=== PATIENT | male | born 1965 | race Caucasian/White ===

== ENCOUNTER 2016-11-19 10:52 | Inpatient (IN) | payer OTHER ==
[2016-11-19 11:30] VITALS: BMI 34.2
--- NOTE | 2016-11-19 13:41 | HP ---
CIWA Score - CIWA Score Nausea/Vomitin-No Nausea/No Vomiting Muscle Tremors: 4-Moderate,w/Arms Extend Anxiety: 4-Mod. Anxious/Guarded Agitation: 4-Moderately Restless Paroxysmal Sweats: 3 Orientation: 0-Oriented Tacttile Disturbances: 0-None Auditory Disturbances: 0-None Visual Disturbances: 0-None Headache: 0-None Present CIWA-Ar Total Score: 15 Admission ROS BHS - HPI Chief Complaint: I am here to detox. Allergies/Adverse Reactions: Allergies Allergy/AdvReac Type Severity Reaction Status Date / Time banana Allergy Severe Hives Verified 11/19/16 13:06 [id number] Allergy Uncoded 11/19/16 13:07 History of Present Illness: pt is a 51yr old male with a history of alcohol and xanax dependence seeking detox for treatment. Exam Limitations: No Limitations - Ebola screening Have you traveled outside of the country in the last 21 days: No Have you had contact with anyone from an Ebola affected area: No Have you been sick,other than usual withdrawal symptoms: No Do you have a fever: No - Review of Systems EENT: reports: No Symptoms Reported Respiratory: reports: No Symptoms reported Cardiac: reports: No Symptoms Reported GI: reports: Diarrhea, Poor Fluid Intake : reports: No Symptoms Reported Musculoskeletal: reports: Other (mild swelling to lower extremities) Integumentary: reports: Flushing, Sweating Neuro: reports: Tingling, Tremors Endocrine: reports: Excessive Sweating, Flushing, Intolerance to Cold, Intolerance to Heat Hematology: reports: No Symptoms Reported Psychiatric: reports: Judgement Intact, Orientated x3, Agitated, Anxious Other Systems: Reviewed and Negative Patient History - Patient Medical History Hx Anemia: No Hx Asthma: No Hx Chronic Obstructive Pulmonary Disease (COPD): No Hx Cancer: No Hx Cardiac Disorders: No Hx Congestive Heart Failure: No Hx Hypertension: No Hx Hypercholesterolemia: No Hx Pacemaker: No HX Cerebrovascular Accident: No Hx Seizures: No Hx Dementia: No Hx Diabetes: No Hx Gastrointestinal Disorders: No Hx Liver Disease: No Hx Genitourinary Disorders: No Hx Sexually Transmitted Disorders: No Hx Renal Disease (ESRD): No Hx Thyroid Disease: No Hx Human Immunodeficiency Virus (HIV): No (negative) Hx Hepatitis C: No (negative) Hx Depression: Yes Hx Suicide Attempt: No (denies) Hx Bipolar Disorder: No Hx Schizophrenia: No - Patient Surgical History Past Surgical History: No Hx Neurologic Surgery: No Hx Cataract Extraction: No Hx Cardiac Surgery: No Hx Lung Surgery: No Hx Breast Surgery: No Hx Breast Biopsy: No Hx Abdominal Surgery: No Hx Appendectomy: No Hx Cholecystectomy: No Hx Genitourinary Surgery: No Hx Section: No Hx Orthopedic Surgery: No Anesthesia Reaction: No - PPD History Previous Implant?: Yes Documented Results: Negative w/o proof PPD to be Administered?: Yes - Reproductive History Patient is a Female of Child Bearing Age (11 -55 yrs old): No - Smoking Cessation Smoking history: Current every day smoker Have you smoked in the past 12 months: Yes Aproximately how many cigarettes per day: 10 Hx Chewing Tobacco Use: No Initiated information on smoking cessation: Yes 'Breaking Loose' booklet given: 11/19/16 - Substance & Tx. History Hx Alcohol Use: Yes Hx Substance Use: Yes Substance Use Type: Alcohol, Cocaine, Tranquilizers Hx Substance Use Treatment: Yes - Substances Abused Cocaine Route: Inhalation Frequency: Daily Amount used: $45 Age of first use: 50 Date of Last Use: 11/18/16 Xanax Route: Oral Frequency: Daily Amount used: 2 mg. Age of first use: 51 Date of Last Use: 11/19/16 Alcohol-vodka Route: Oral Frequency: 3-6 times per week Amount used: 1-2 pts. Age of first use: 50 Date of Last Use: 11/18/16 Family Disease History - Family Disease History Family History: Denies Admission Physical Exam S - Vital Signs Vital Signs: Vital Signs - 24 hr 11/19/16 11:28 Temperature 97.8 F Pulse Rate 73 Respiratory 18 Rate Blood Pressure 127/84 - Physical General Appearance: Yes: Mild Distress, Irritable, Sweating, Anxious HEENTM: Yes: Normal Voice Respiratory: Yes: Lungs Clear, Normal Breath Sounds, No Respiratory Distress Neck: Yes: No masses,lesions,Nodules Breast: Yes: Within Normal Limits Cardiology: Yes: Regular Rhythm, Regular Rate, S1, S2 Abdominal: Yes: Normal Bowel Sounds, Non Tender, Soft Genitourinary: Yes: Within Normal Limits Back: Yes: Normal Inspection Musculoskeletal: Yes: full range of Motion Extremities: Yes: Normal Capillary Refill, Non-Tender, Tremors Neurological: Yes: Fully Oriented, Alert, Normal Response Integumentary: Yes: Normal Color, Diaphoresis Lymphatic: Yes: Within Normal Limits - Diagnostic (1) Alcohol dependence with uncomplicated withdrawal Current Visit: Yes Status: Chronic (2) Sedative, hypnotic or anxiolytic dependence with withdrawal, uncomplicated Current Visit: Yes Status: Chronic (3) Nicotine dependence Current Visit: Yes Status: Chronic Qualifiers: Nicotine product type: cigarettes Substance use status: uncomplicated Qualified Code(s): F17.210 - Nicotine dependence, cigarettes, uncomplicated (4) Methadone maintenance therapy patient Current Visit: Yes Status: Chronic Comment: dose verified with with ORALIA Pate and ORALIA Toro at [facility] 2 mmtp [facility]. last dose recieved today 11/19/16. Cleared for Admission S - Detox or Rehab [facility] Level of Care: Medically Managed Detox Regimen/Protocol: Valium [facility] Breath Alcohol Content Breath Alcohol Content: 0 Urine Drug Screen - Results Drug Screen Negative: No Urine Drug Screen Results: TOM-Cocaine, BZO-Benzodiazepines, MTD-Methadone
[2016-11-19] MEDS ORDERED: MAG HYDROX/AL HYDROX/SIMETH 30 ML UNIT-DOSE CUP PO PRN (13:46)
[2016-11-19] MEDS ORDERED: MAGNESIUM HYDROX 2400MG/30ML ORAL SUSPENSION 30 ML CUP PO PRN (13:46)
[2016-11-19] MEDS ORDERED: IBUPROFEN 400 MG TABLET (FP) PO PRN (13:46)
[2016-11-19] MEDS ORDERED: hydrOXYzine PAMOATE 50 MG CAPSULE (FP) PO PRN (13:46)
[2016-11-19] MEDS ORDERED: MENTHOL/PHENOL 1 EACH UD MM PRN (13:46)
[2016-11-19] MEDS ORDERED: guaiFENesin/D-METHORPHAN HB 10 ML UNIT-DOSE CUPS PO PRN (13:46)
[2016-11-19] MEDS ORDERED: P-EPHED 60MG/TRIPROLIDI 2.5MG TABLET PO PRN (13:46)
[2016-11-19] MEDS ORDERED: MAGNESIUM CITRATE 300 ML BOTTLE PO PRN (13:46)
[2016-11-19] MEDS ORDERED: LOPERAMIDE HCL 2 MG CAPSULE PO PRN (13:46)
[2016-11-19] MEDS ORDERED: diazePAM 5 MG TABLET PO ONE (14:45)
[2016-11-19] MEDS: diazePAM 5 MG TABLET PO SCH ×2 (15:15→22:07)
--- NOTE | 2016-11-19 15:57 | EKG ---
Test Reason : Blood Pressure : / mmHG Vent. Rate : 059 BPM Atrial Rate : 059 BPM P-R Int : 158 ms QRS Dur : 090 ms QT Int : 418 ms P-R-T Axes : 034 053 055 degrees QTc Int : 413 ms SINUS BRADYCARDIA OTHERWISE NORMAL ECG NO PREVIOUS ECGS AVAILABLE Confirmed by BERENICE AGUILAR, CLAYTON ([id number]) on 11/19/2016 3:56:58 PM Referred By: Coleman Martinez Confirmed By:CLAYTON NG MD
[2016-11-19 18:43] LABS: URINE APPEARANCE CLEAR; URINE BILIRUBIN NEGATIVE (NEGATIVE); URINE BLOOD NEGATIVE (NEGATIVE); URINE COLOR LTYELLOW; URINE GLUCOSE (UA) NEGATIVE (NEGATIVE); URINE KETONE NEGATIVE (NEGATIVE); URINE LEUK ESTERASE NEGATIVE (NEGATIVE); URINE NITRITE NEGATIVE (NEGATIVE); URINE PROTEIN NEGATIVE (NEGATIVE); URINE UROBILINOGEN NEGATIVE E.U./dl (0.2-1.0)
[2016-11-19] MEDS: THIAMINE HCL 100 MG TABLET (FP) PO SCH (22:07)
[2016-11-19] MEDS: diphenhydrAMINE HCL 50 MG CAPSULE PO PRN (22:07)
[2016-11-20] MEDS ORDERED: METHADONE HCL 40 MG DISPERSABLE TABLET ONE (04:30)
[2016-11-20] MEDS ORDERED: METHADONE HCL 10 MG TABLET ONE (04:30)
[2016-11-20] MEDS: diazePAM 5 MG TABLET PO SCH ×3 (05:59→22:10)
[2016-11-20] MEDS: METHADONE 80 MG, METHADONE 10 MG PO SCH (05:59)
[2016-11-20] MEDS ORDERED: METHADONE HCL 10 MG TABLET PO SCH (06:00)
[2016-11-20] MEDS: LEVOTHYROXINE NA 112 MCG TABLET (FP) PO SCH (06:20)
[2016-11-20] MEDS: diazePAM 5 MG TABLET PO PRN (08:50)
[2016-11-20 09:54] LABS: MCH 28.6 pg (25.7-33.7); MCHC 31.8 g/dl (32.0-35.9); PLATELET COUNT 214 K/MM3 (134-434); RDW 14.5 % (11.9-15.9); WHITE BLOOD COUNT 6.2 K/mm3 (4.0-10.0)
[2016-11-20 10:33] LABS: ALBUMIN 4.3 g/dl (3.4-5.0); BILIRUBIN,TOTAL 0.3 mg/dL (0.2-1.0); CALCIUM 9.3 mg/dL (8.5-10.1); CREATININE 1.3 mg/dL (0.7-1.3); TOT PROT 8.1 g/dl (6.4-8.2)
[2016-11-20] MEDS: PRENATAL VITAMINS W/ FOLIC ACID TABLET (FP) PO SCH (10:44)
[2016-11-20] MEDS: NICOTINE POLACRILEX 4 MG GUM BUC PRN (10:45)
[2016-11-20] MEDS: NICOTINE 21 MG/24 HOURS TOPICAL PATCH TD SCH (10:45)
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
--- NOTE | 2016-11-20 12:15 | PN ---
S CIWA - CIWA Score Nausea/Vomitin-No Nausea/No Vomiting Muscle Tremors: 4-Moderate,w/Arms Extend Anxiety: 3 Agitation: 4-Moderately Restless Paroxysmal Sweats: 3 Orientation: 0-Oriented Tacttile Disturbances: 0-None Auditory Disturbances: 0-None Visual Disturbances: 0-None Headache: 0-None Present CIWA-Ar Total Score: 14 BHS Progress Note (SOAP) Subjective: anxiety,tremors,sweating,interrupted sleep,restless. Objective: 11/20/16 12:13 Vital Signs - 8 hr 11/20/16 11/20/16 06:38 09:32 Temperature 99.8 F H 98.0 F Pulse Rate 87 83 Respiratory 18 18 Rate Blood Pressure 138/91 104/73 Laboratory Tests 11/19/16 11/20/16 11/20/16 13:00 06:20 06:20 WBC 6.2 RBC 4.25 Hgb 12.2 Hct 38.2 MCV 90.0 MCHC 31.8 L RDW 14.5 Plt Count 214 MPV 10.0 Sodium 143 Potassium 4.2 Chloride 101 Carbon Dioxide 33 H Anion Gap 9 BUN 23 H Creatinine 1.3 Creat Clearance w eGFR 57.75 Random Glucose 96 Calcium 9.3 Total Bilirubin 0.3 AST 42 H ALT 31 Alkaline Phosphatase 105 Total Protein 8.1 Albumin 4.3 Urine Color Ltyellow Urine Appearance Clear Urine pH 5.0 Ur Specific [place] 1.025 Urine Protein Negative Urine Glucose (UA) Negative Urine Ketones Negative Urine Blood Negative Urine Nitrite Negative Urine Bilirubin Negative Urine Urobilinogen Negative Ur Leukocyte Esterase Negative RPR Titer 11/20/16 06:20 WBC RBC Hgb Hct MCV MCHC RDW Plt Count MPV Sodium Potassium Chloride Carbon Dioxide Anion Gap BUN Creatinine Creat Clearance w eGFR Random Glucose Calcium Total Bilirubin AST ALT Alkaline Phosphatase Total Protein Albumin Urine Color Urine Appearance Urine pH Ur Specific [place] Urine Protein Urine Glucose (UA) Urine Ketones Urine Blood Urine Nitrite Urine Bilirubin Urine Urobilinogen Ur Leukocyte Esterase RPR Titer Nonreactive labs noted Assessment: 11/20/16 12:14 Withdrawal sx. Plan: continue detox
[2016-11-20] MEDS: ACETAMINOPHEN 325 MG TABLET (FP) PO PRN ×2 (13:41→22:12)
[2016-11-20] MEDS: diphenhydrAMINE HCL 50 MG CAPSULE PO PRN (22:10)
[2016-11-20] MEDS: THIAMINE HCL 100 MG TABLET (FP) PO SCH (22:10)
[2016-11-21] MEDS ORDERED: METHADONE HCL 40 MG DISPERSABLE TABLET ONE (04:34)
[2016-11-21] MEDS ORDERED: METHADONE HCL 10 MG TABLET ONE (04:34)
[2016-11-21] MEDS: METHADONE 80 MG, METHADONE 10 MG PO SCH (05:07)
[2016-11-21] MEDS: diazePAM 5 MG TABLET PO PRN (05:08)
[2016-11-21] MEDS: LEVOTHYROXINE NA 112 MCG TABLET (FP) PO SCH (06:47)
--- NOTE | 2016-11-21 09:51 | PN ---
S CIWA - CIWA Score Nausea/Vomitin Muscle Tremors: 3 Anxiety: 3 Agitation: 2 Paroxysmal Sweats: 1-Minimal Palms Moist Orientation: 0-Oriented Tacttile Disturbances: 1-Very Mild Itch/Numbness Auditory Disturbances: 1-Very Mild Visual Disturbances: 1-Very Mild Sensitivity Headache: 2-Mild CIWA-Ar Total Score: 17 S Progress Note (SOAP) Subjective: ALERT,IRRITABLE,ANXIOUS,INTERRUPTED SLEEP,TREMOR,CONSTIPATED,SEEING THE BLOOD WHEN WIPING HIMSELF Objective: 11/21/16 09:48 Vital Signs Temperature 98.1 F 11/21/16 09:06 Pulse Rate 90 11/21/16 09:06 Respiratory Rate 20 11/21/16 09:06 Blood Pressure 86/63 11/21/16 09:06 O2 Sat by Pulse Oximetry (%) SKG SINUS BRADYCARDIA 59/MIN NO CHEST PAIN,NO SOB,NO DIZZINESS Laboratory Last Values WBC 6.2 K/mm3 (4.0-10.0) 11/20/16 06:20 RBC 4.25 M/mm3 (4.00-5.60) 11/20/16 06:20 Hgb 12.2 GM/dL (11.7-16.9) 11/20/16 06:20 Hct 38.2 % (35.4-49) 11/20/16 06:20 MCV 90.0 fl (80-96) 11/20/16 06:20 MCHC 31.8 g/dl (32.0-35.9) L 11/20/16 06:20 RDW 14.5 % (11.9-15.9) 11/20/16 06:20 Plt Count 214 K/MM3 (134-434) 11/20/16 06:20 MPV 10.0 fl (7.5-11.1) 11/20/16 06:20 Sodium 143 mmol/L (136-145) 11/20/16 06:20 Potassium 4.2 mmol/L (3.5-5.1) 11/20/16 06:20 Chloride 101 mmol/L (98-107) 11/20/16 06:20 Carbon Dioxide 33 mmol/L (21-32) H 11/20/16 06:20 Anion Gap 9 (8-16) 11/20/16 06:20 BUN 23 mg/dL (7-18) H 11/20/16 06:20 Creatinine 1.3 mg/dL (0.7-1.3) 11/20/16 06:20 Creat Clearance w eGFR 57.75 (>60) 11/20/16 06:20 Random Glucose 96 mg/dL (74-106) 11/20/16 06:20 Calcium 9.3 mg/dL (8.5-10.1) 11/20/16 06:20 Total Bilirubin 0.3 mg/dL (0.2-1.0) 11/20/16 06:20 AST 42 U/L (15-37) H 11/20/16 06:20 ALT 31 U/L (12-78) 11/20/16 06:20 Alkaline Phosphatase 105 U/L (45-117) 11/20/16 06:20 Total Protein 8.1 g/dl (6.4-8.2) 11/20/16 06:20 Albumin 4.3 g/dl (3.4-5.0) 11/20/16 06:20 Urine Color Ltyellow 11/19/16 13:00 Urine Appearance Clear 11/19/16 13:00 Urine pH 5.0 (5.0-8.0) 11/19/16 13:00 Ur Specific [place] 1.025 (1.001-1.035) 11/19/16 13:00 Urine Protein Negative (NEGATIVE) 11/19/16 13:00 Urine Glucose (UA) Negative (NEGATIVE) 11/19/16 13:00 Urine Ketones Negative (NEGATIVE) 11/19/16 13:00 Urine Blood Negative (NEGATIVE) 11/19/16 13:00 Urine Nitrite Negative (NEGATIVE) 11/19/16 13:00 Urine Bilirubin Negative (NEGATIVE) 11/19/16 13:00 Urine Urobilinogen Negative E.U./dl (0.2-1.0) 11/19/16 13:00 Ur Leukocyte Esterase Negative (NEGATIVE) 11/19/16 13:00 RPR Titer Nonreactive (NONREACTIVE) 11/20/16 06:20 Assessment: 11/21/16 09:50 WITHDRAWAL SYMPTOM Plan: WITHDRAWAL SYMPTOM,CONTINUE DETOX,ENCOURAGE ORAL FLUID,REPAT CBC,CMP,IN R IN AM
[2016-11-21] MEDS: PRENATAL VITAMINS W/ FOLIC ACID TABLET (FP) PO SCH (10:07)
[2016-11-21] MEDS: NICOTINE 21 MG/24 HOURS TOPICAL PATCH TD SCH (10:07)
[2016-11-21] MEDS: diazePAM 5 MG TABLET PO SCH ×2 (10:07→22:16)
[2016-11-21] MEDS: NICOTINE POLACRILEX 4 MG GUM BUC PRN (10:09)
[2016-11-21] MEDS: ACETAMINOPHEN 325 MG TABLET (FP) PO PRN ×2 (12:51→16:55)
[2016-11-21] MEDS: diphenhydrAMINE HCL 50 MG CAPSULE PO PRN (22:16)
[2016-11-21] MEDS: THIAMINE HCL 100 MG TABLET (FP) PO SCH (22:17)
[2016-11-22] MEDS ORDERED: METHADONE HCL 10 MG TABLET ONE (04:38)
[2016-11-22] MEDS ORDERED: METHADONE HCL 40 MG DISPERSABLE TABLET ONE (04:39)
[2016-11-22] MEDS: METHADONE 80 MG, METHADONE 10 MG PO SCH (05:08)
[2016-11-22] MEDS: ACETAMINOPHEN 325 MG TABLET (FP) PO PRN (05:09)
[2016-11-22] MEDS: LEVOTHYROXINE NA 112 MCG TABLET (FP) PO SCH (06:02)
[2016-11-22 09:46] LABS: MCH 28.8 pg (25.7-33.7); MCHC 32.1 g/dl (32.0-35.9); MEAN CELL VOLUME 89.6 fl (80-96); MEAN PLT VOLUME 9.2 fl (7.5-11.1); PLATELET COUNT 193 K/MM3 (134-434); RDW 14.3 % (11.9-15.9); WHITE BLOOD COUNT 6.1 K/mm3 (4.0-10.0)
--- NOTE | 2016-11-22 10:04 | PN ---
BHS Progress Note (SOAP) Subjective: SLIGHT ANXIETY,DECREASED TREMORS. STATES NO BM SINCE FRIDAY. BUT CONCERNED WITH HX BLOOD IN STOOL. Objective: 11/22/16 10:04 Vital Signs Temperature 98.1 F 11/22/16 09:55 Pulse Rate 75 11/22/16 09:55 Respiratory Rate 18 11/22/16 09:55 Blood Pressure 119/80 11/22/16 09:55 O2 Sat by Pulse Oximetry (%) Assessment: WITHDRAWAL SX Plan: CONTINUE DETOX PT INSTRUCTED TO F/U AT [facility] FOR GI APPOINTMENT/CARE.
[2016-11-22] MEDS: PRENATAL VITAMINS W/ FOLIC ACID TABLET (FP) PO SCH (10:15)
[2016-11-22] MEDS: diazePAM 5 MG TABLET PO SCH ×2 (10:15→22:06)
[2016-11-22] MEDS: NICOTINE 21 MG/24 HOURS TOPICAL PATCH TD SCH (10:15)
[2016-11-22] MEDS: NICOTINE POLACRILEX 4 MG GUM BUC PRN (10:16)
[2016-11-22 10:25] LABS: INR 1.08 (0.82-1.09); PROTHROMBIN TIME (PATIENT) 11.9 SEC (9.98-11.88)
[2016-11-22 12:01] LABS: ALBUMIN 3.5 g/dl (3.4-5.0); ALK PHOS 79 U/L (45-117); ANION GAP 5 (8-16); BILIRUBIN,TOTAL 0.3 mg/dL (0.2-1.0); CALCIUM 8.3 mg/dL (8.5-10.1); CO2 36 mmol/L (21-32); CREATININE 1.2 mg/dL (0.7-1.3); GLUCOSE,RANDOM 99 mg/dL (74-106); SGOT/AST 28 U/L (15-37); SGPT/ALT 28 U/L (12-78); TOT PROT 6.7 g/dl (6.4-8.2)
[2016-11-22 21:59] VITALS: BP 113/79; PULSE 74; TEMP 95.9
[2016-11-22] MEDS: THIAMINE HCL 100 MG TABLET (FP) PO SCH (22:06)
[2016-11-22] MEDS: diphenhydrAMINE HCL 50 MG CAPSULE PO PRN (22:06)
[2016-11-23] MEDS ORDERED: METHADONE HCL 10 MG TABLET ONE (03:55)
[2016-11-23] MEDS ORDERED: METHADONE HCL 40 MG DISPERSABLE TABLET ONE (03:56)
[2016-11-23] MEDS: METHADONE 80 MG, METHADONE 10 MG PO SCH (05:11)
[2016-11-23] MEDS: LEVOTHYROXINE NA 112 MCG TABLET (FP) PO SCH (05:56)
[2016-11-23] MEDS ORDERED: diazePAM 5 MG TABLET PO SCH (10:00)
--- NOTE | 2016-11-23 13:15 | DS ---
[facility] Detox Discharge Summary Admission Date: 11/19/16 Discharge Date: 11/23/16 - History Present History: Alcohol Dependence, Opioid Dependence, Sedative Dependence, MMTP Additional Comments: ADVISED PATIENT TO FOLLOW-UP WITH [facility] / REHAB MEDICAL PROVIDER AFTER DISCHARGE FROM DETOX FOR GENERAL MEDICAL ASSESSMENT AND FOR ANY ABNORMAL ADMISSION LAB VALUES. Pertinent Past History: Depression. - Physical Exam Results Vital Signs: Vital Signs Temperature 95.9 F L 11/22/16 21:58 Pulse Rate 74 11/22/16 21:58 Respiratory Rate 18 11/23/16 03:30 Blood Pressure 113/79 11/22/16 21:58 O2 Sat by Pulse Oximetry (%) Pertinent Admission Physical Exam Findings: WITHDRAWAL SYMPTOMS. Laboratory Last Values WBC 6.1 K/mm3 (4.0-10.0) 11/22/16 07:00 RBC 4.11 M/mm3 (4.00-5.60) 11/22/16 07:00 Hgb 11.8 GM/dL (11.7-16.9) 11/22/16 07:00 Hct 36.8 % (35.4-49) 11/22/16 07:00 MCV 89.6 fl (80-96) 11/22/16 07:00 MCHC 32.1 g/dl (32.0-35.9) 11/22/16 07:00 RDW 14.3 % (11.9-15.9) 11/22/16 07:00 Plt Count 193 K/MM3 (134-434) 11/22/16 07:00 MPV 9.2 fl (7.5-11.1) 11/22/16 07:00 INR 1.08 (0.82-1.09) 11/22/16 07:00 Sodium 142 mmol/L (136-145) 11/22/16 07:00 Potassium 3.8 mmol/L (3.5-5.1) 11/22/16 07:00 Chloride 101 mmol/L (98-107) 11/22/16 07:00 Carbon Dioxide 36 mmol/L (21-32) H 11/22/16 07:00 Anion Gap 5 (8-16) L 11/22/16 07:00 BUN 16 mg/dL (7-18) D 11/22/16 07:00 Creatinine 1.2 mg/dL (0.7-1.3) 11/22/16 07:00 Creat Clearance w eGFR > 60 (>60) 11/22/16 07:00 Random Glucose 99 mg/dL (74-106) 11/22/16 07:00 Calcium 8.3 mg/dL (8.5-10.1) L 11/22/16 07:00 Total Bilirubin 0.3 mg/dL (0.2-1.0) 11/22/16 07:00 AST 28 U/L (15-37) D 11/22/16 07:00 ALT 28 U/L (12-78) 11/22/16 07:00 Alkaline Phosphatase 79 U/L (45-117) D 11/22/16 07:00 Total Protein 6.7 g/dl (6.4-8.2) 11/22/16 07:00 Albumin 3.5 g/dl (3.4-5.0) 11/22/16 07:00 Urine Color Ltyellow 11/19/16 13:00 Urine Appearance Clear 11/19/16 13:00 Urine pH 5.0 (5.0-8.0) 11/19/16 13:00 Ur Specific [place] 1.025 (1.001-1.035) 11/19/16 13:00 Urine Protein Negative (NEGATIVE) 11/19/16 13:00 Urine Glucose (UA) Negative (NEGATIVE) 11/19/16 13:00 Urine Ketones Negative (NEGATIVE) 11/19/16 13:00 Urine Blood Negative (NEGATIVE) 11/19/16 13:00 Urine Nitrite Negative (NEGATIVE) 11/19/16 13:00 Urine Bilirubin Negative (NEGATIVE) 11/19/16 13:00 Urine Urobilinogen Negative E.U./dl (0.2-1.0) 11/19/16 13:00 Ur Leukocyte Esterase Negative (NEGATIVE) 11/19/16 13:00 RPR Titer Nonreactive (NONREACTIVE) 11/20/16 06:20 LABS NOTED. - Treatment Hospital Course: Detox Protocol Followed, Detoxed Safely, Responded well, Discharged Condition Good Patient has Accepted a Rehab Referral to: NO - PT. REFUSES REHAB AT THIS TIME. 12-STEP / AA PROGRAM RECOMMENDED. - Medication Discharge Medications: Ambulatory Orders Levothyroxine Sodium [Levo-T] 112 mcg PO DAILY 11/19/16 - Diagnosis (1) Alcohol dependence with uncomplicated withdrawal Status: Acute (2) Nicotine dependence Status: Chronic Qualifiers: Nicotine product type: cigarettes Substance use status: uncomplicated Qualified Code(s): F17.210 - Nicotine dependence, cigarettes, uncomplicated (3) Opioid dependence on agonist therapy Status: Chronic (4) Methadone maintenance therapy patient Status: Chronic (5) Sedative, hypnotic or anxiolytic dependence with withdrawal, uncomplicated Status: Acute - AMA Did Patient Leave Against Medical Advice: No
== END 2016-11-23 05:56 | disposition home or self-care (01) | DRG 773 ==
LOC: YASAS 10:52 → Y3N 14:03
PROVIDERS: ADMIT Internal Medicine; ATTEND Internal Medicine
PROC: HZ2ZZZZ Detoxification Services for Substance Abuse Treatment (ICD-10-PCS; principal; 2016-11-23)
DX: F11.20 Opioid dependence, uncomplicated (principal); F13.230 Sedative, hypnotic or anxiolytic dependence with withdrawal, uncomplicated; F10.230 Alcohol dependence with withdrawal, uncomplicated; F17.210 Nicotine dependence, cigarettes, uncomplicated
CPT/HCPCS: 36415; 80053; 81003; 85027; 85610; 86593; 93005; 93010